=== PATIENT | female | born 1940 | race Caucasian/White ===

== ENCOUNTER 2023-04-28 17:23 | Inpatient (IN) | payer OTHER ==
[~2023-04-28] VITALS: Ht 162.6 cm; Wt 69.9 kg
[2023-04-28 18:10] LABS: BASOPHILS # (AUTO) 0.1 K/uL (0.0-0.2); BASOPHILS % (AUTO) 0.5 % (0.0-2.0); EOSINOPHILS # (AUTO) 0.1 K/uL (0.0-0.7); EOSINOPHILS % (AUTO) 0.6 % (0.0-6.0); HEMATOCRIT 36 % (33-45); HEMOGLOBIN 12.3 g/dL (11.5-14.8); LYMPHOCYTES # (AUTO) 1.3 K/uL (0.8-4.8); LYMPHOCYTES % (AUTO) 12.2 % (20.0-44.0); MEAN CORPUSCULAR HEMOGLOBIN 28 PG (26.0-33.0); MEAN CORPUSCULAR HGB CONC 34 g/dl (31.0-36.0); MEAN CORPUSCULAR VOLUME 83 fL (82-100); MONOCYTES # (AUTO) 0.8 K/uL (0.1-1.30); MONOCYTES % (AUTO) 7.4 % (2.0-12.0); NEUTROPHILS # (AUTO) 8.5 K/uL (1.8-8.9); NEUTROPHILS % (AUTO) 79.3 % (43.0-81.0); PLATELET COUNT (AUTO) 402 K/uL (150-450); RED BLOOD CELL COUNT(AUTO) 4.33 MIL/uL (4.0-5.2); RED CELL DISTRIBUTION WIDTH 14.3 % (11.5-15.0); WHITE BLOOD COUNT (AUTO) 10.8 K/uL (4.3-11.0)
[2023-04-28 18:26] LABS: INR 2.1 (0.91-1.10); PARTIAL THROMBOPLASTIN TIME 40.1 SEC (24.3-34.3); PROTHROMBIN TIME 21.2 SECS (9.2-11.1)
[2023-04-28 18:52] LABS: APPEARANCE,URINE SLIGHTLY CLOUDY (CLEAR); BILIRUBIN,URINE NEGATIVE (NEGATIVE); BLOOD, URINE 2+ Ery/uL (NEGATIVE); COLOR,URINE YELLOW (YELLOW); KETONES,URINE TRACE mg/dL (NEGATIVE); LEUKOCYTE ESTERASE ,URINE 2+ (NEGATIVE); NITRITE, URINE POSITIVE (NEGATIVE); PROTEIN,URINE 2+ mg/dl (NEGATIVE); UGLUCOSE NEGATIVE (NEGATIVE); UROBILINOGEN,URINE 0.2 EU/dL (0.2)
[2023-04-28 18:55] LABS: ADD URINE CULTURE YES; BACTERIA,URINE 3+ /HPF (None Seen); RBC,URINE 21-50 /HPF (0-2); SQUAMOUS EPITHELIAL CELL,UR 0-2 /HPF (None Seen); WBC,URINE 21-50 /HPF (0-3)
[2023-04-28] MEDS ORDERED: IV NS 0.9% 1,000 ML BAG IV ONE (19:00)
[2023-04-28 19:16] LABS: ALANINE AMINOTRANSFERASE 75 U/L (12-78); ALBUMIN 3.1 g/dL (3.4-5.0); ALCOHOL, BLOOD < 3 mg/dL (0-10); ALKALINE PHOSPHATASE 108 U/L (46-116); ASPARTATE AMINOTRANSFERASE 39 U/L (15-37); BILIRUBIN,DIRECT 0.2 mg/dL (0.0-0.2); BILIRUBIN,TOTAL 0.6 mg/dL (0.2-1.0); CALCIUM, SERUM 9.1 mg/dL (8.5-10.1); CARBON DIOXIDE 30 mmol/L (21-32); CREATININE 0.7 mg/dL (0.6-1.3); GLUCOSE 163 mg/dL (74-106); TOTAL PROTEIN, SERUM 7.1 g/dL (6.4-8.2); UREA NITROGEN, BLOOD 12 mg/dL (7-18)
[2023-04-28 19:22] LABS: MAGNESIUM 1.7 mg/dL (1.8-2.4)
[2023-04-28 19:27] LABS: CHLORIDE 79 mmol/L (98-107); POTASSIUM 2.7 mmol/L (3.5-5.1); SODIUM SERUM 116 mmol/L (136-145)
[2023-04-28 19:49] LABS: THYROID STIMULATING HORMONE 1.991 uIU/mL (0.358-3.74)
[2023-04-28] MEDS: POTASSIUM CL. PREMIX PERIPHER. 50 ML IV SCH ×4 (20:20→23:54)
[2023-04-28] MEDS ORDERED: POTASSIUM CHLORIDE 20 MEQ TAB.PRT.SR PO ONE (21:30)
[2023-04-28] MEDS ORDERED: IV NS 0.9% 1,000 ML IV PRN (22:00)
[2023-04-28] MEDS ORDERED: CEFTRIAXONE 1 G in IV D5W 50 ML IV SCH (22:00)
[2023-04-28] MEDS ORDERED: ONDANSETRON HCL/PF 4 MG/2 ML VIAL IVP PRN (22:00)
[2023-04-28] MEDS ORDERED: ZOLPIDEM TARTRATE 5 MG TABLET PO PRN (22:00)
[2023-04-28] MEDS ORDERED: MAGNESIUM HYDROXIDE 30 ML UDC PO PRN (22:00)
[2023-04-28] MEDS ORDERED: Z GUARD REMEDY 4 OZ OINT TP PRN (22:00)
[2023-04-28] MEDS ORDERED: ACETAMINOPHEN 325 MG TABLET PO PRN (22:00)
[2023-04-28] MEDS ORDERED: MAG HYDROX/AL HYDROX/SIMETH 30 ML UDC PO PRN (22:00)
[2023-04-28] MEDS ORDERED: POTASSIUM CL. PREMIX PERIPHER. 50 ML ONE (22:28)
[2023-04-28 23:13] LABS: CALCIUM, SERUM 8.2 mg/dL (8.5-10.1); CREATININE 0.6 mg/dL (0.6-1.3)
[2023-04-28 23:30] VITALS: BP 128/58; TEMP 98.8; O2SAT 96
[2023-04-28 23:30] LABS: POTASSIUM 2.8 mmol/L (3.5-5.1)
[2023-04-28] MEDS ORDERED: CEFTRIAXONE 1GM BAG (ER ONLY) 50 ML IV ONE (23:33)
[2023-04-28 23:56] VITALS: BP 128/58; TEMP 98.8; O2SAT 96
[2023-04-29 04:00] VITALS: BP 126/51; TEMP 98.6; O2SAT 96
[2023-04-29 06:25] LABS: BASOPHILS # (AUTO) 0.1 K/uL (0.0-0.2); BASOPHILS % (AUTO) 0.5 % (0.0-2.0); EOSINOPHILS # (AUTO) 0.1 K/uL (0.0-0.7); EOSINOPHILS % (AUTO) 0.9 % (0.0-6.0); HEMATOCRIT 31 % (33-45); HEMOGLOBIN 10.4 g/dL (11.5-14.8); LYMPHOCYTES # (AUTO) 1.1 K/uL (0.8-4.8); LYMPHOCYTES % (AUTO) 10.4 % (20.0-44.0); MEAN CORPUSCULAR HEMOGLOBIN 28 PG (26.0-33.0); MEAN CORPUSCULAR HGB CONC 33 g/dl (31.0-36.0); MEAN CORPUSCULAR VOLUME 85 fL (82-100); MONOCYTES # (AUTO) 0.7 K/uL (0.1-1.30); MONOCYTES % (AUTO) 6.9 % (2.0-12.0); NEUTROPHILS # (AUTO) 8.8 K/uL (1.8-8.9); NEUTROPHILS % (AUTO) 81.3 % (43.0-81.0); PLATELET COUNT (AUTO) 342 K/uL (150-450); RED BLOOD CELL COUNT(AUTO) 3.68 MIL/uL (4.0-5.2); RED CELL DISTRIBUTION WIDTH 14.4 % (11.5-15.0); WHITE BLOOD COUNT (AUTO) 10.8 K/uL (4.3-11.0)
[2023-04-29 06:54] LABS: CREATININE 0.6 mg/dL (0.6-1.3); MAGNESIUM 1.9 mg/dL (1.8-2.4); PHOSPHORUS 2.1 mg/dL (2.5-4.9); POTASSIUM 2.9 mmol/L (3.5-5.1)
[2023-04-29 08:00] VITALS: BP 142/60; TEMP 99; O2SAT 97
[2023-04-29] MEDS ORDERED: POTASSIUM CHLORIDE 20 MEQ POWDER PACKET PO ONE ×2 (09:00→10:00)
[2023-04-29] MEDS ORDERED: ISOS30TA86 PO (09:30)
[2023-04-29] MEDS ORDERED: ALBU8.5H8 IH (09:30)
[2023-04-29] MEDS ORDERED: TIOT4MIS5 IH (09:30)
[2023-04-29] MEDS ORDERED: FLUT1BLS13 IH (09:30)
[2023-04-29] MEDS ORDERED: CARB1TAB21 PO (09:30)
[2023-04-29] MEDS ORDERED: METF-440 PO (09:30)
[2023-04-29] MEDS ORDERED: MONT10TA22 PO (09:30)
[2023-04-29] MEDS ORDERED: AMLO5TAB4 PO (09:30)
[2023-04-29] MEDS ORDERED: IV D5W 1,000 ML IV ONE (09:30)
[2023-04-29] MEDS ORDERED: WARF-58 PO (09:30)
[2023-04-29] MEDS ORDERED: ROSU20TA2 PO (09:30)
[2023-04-29] MEDS ORDERED: WARF7.5T49 PO (09:30)
[2023-04-29] MEDS ORDERED: HYDR25TA4 PO (09:30)
[2023-04-29] MEDS ORDERED: IV D5W 1,000 ML IV PRN (10:30)
[2023-04-29] MEDS ORDERED: WARFARIN SODIUM 5 MG TABLET PO SCH (11:00)
[2023-04-29] MEDS ORDERED: ALBUTEROL FS 2.5 MG/3 ML VIAL.NEB NEB PRN (11:30)
[2023-04-29 12:00] VITALS: BP 152/66; TEMP 99.1; O2SAT 98
[2023-04-29] MEDS ORDERED: BISACODYL SUPP (10 MG) 10 MG/SUPP.RECT SUPP.RECT RC PRN (12:30)
[2023-04-29] MEDS: METFORMIN 500 MG TABLET PO SCH ×2 (12:40→16:44)
[2023-04-29] MEDS: CARBIDOPA/LEVODOPA 25/100 MG 1 UDTAB PO SCH ×2 (12:40→16:44)
[2023-04-29 13:13] LABS: THYROID STIMULATING HORMONE 1.897 uIU/mL (0.358-3.74)
[2023-04-29] MEDS ORDERED: ALBUTEROL FS 2.5 MG/0.5 ML VIAL.NEB NEB SCH (13:30)
[2023-04-29 14:41] LABS: CALCIUM, SERUM 8.2 mg/dL (8.5-10.1); CARBON DIOXIDE 23 mmol/L (21-32); CHLORIDE 97 mmol/L (98-107); CREATININE 0.6 mg/dL (0.6-1.3); GLUCOSE 225 mg/dL (74-106); MAGNESIUM 1.8 mg/dL (1.8-2.4); PHOSPHORUS 1.7 mg/dL (2.5-4.9); POTASSIUM 3.8 mmol/L (3.5-5.1); SODIUM SERUM 128 mmol/L (136-145); UREA NITROGEN, BLOOD 10 mg/dL (7-18)
[2023-04-29 16:00] VITALS: BP 135/56; TEMP 98.8; O2SAT 97
[2023-04-29] MEDS ORDERED: K PHOS NEUTRAL 250 MG TABLET PO ONE (16:00)
[2023-04-29 16:43] VITALS: BP 135/56
[2023-04-29] MEDS ORDERED: AMLODIPINE BESYLATE 5 MG TABLET PO SCH (17:00)
[2023-04-29] MEDS ORDERED: LEVOFLOXACIN (250MG) 250 MG TABLET PO SCH (17:00)
[2023-04-29 17:34] LABS: CALCIUM, SERUM 8.1 mg/dL (8.5-10.1); CARBON DIOXIDE 24 mmol/L (21-32); CHLORIDE 94 mmol/L (98-107); CREATININE 0.6 mg/dL (0.6-1.3); GLUCOSE 168 mg/dL (74-106); POTASSIUM 3.8 mmol/L (3.5-5.1); SODIUM SERUM 124 mmol/L (136-145); UREA NITROGEN, BLOOD 10 mg/dL (7-18)
[2023-04-29] MEDS ORDERED: BUDESONIDE RESPULE INH 0.5 MG/2 ML AMPUL.NEB NEB SCH (19:30)
[2023-04-29] MEDS ORDERED: ATORVASTATIN 40 MG TABLET PO SCH (22:00)
[2023-04-29] MEDS ORDERED: MONTELUKAST SODIUM (10MG) 10 MG TABLET PO SCH (22:00)
[2023-04-30] MEDS ORDERED: ISOSORBIDE MONONITRATE (30MG) 30 MG TAB.SR.24H PO SCH (09:00)
[2023-04-30] MEDS ORDERED: WARFARIN SODIUM 5 MG TABLET PO SCH (12:04)
[2023-05-02 06:07] LABS: HEPATITIS B CORE AB, IgM Negative (Negative); HEPATITIS B CORE AB, TOTAL Negative (Negative); HEPATITIS B SURFACE AB Non Reactive (.); HEPATITIS Be AG Negative (Negative)
[2023-05-02 09:07] LABS: HEPATITIS Be AB Negative (Negative)
== END 2023-04-29 17:58 | disposition short-term general hospital (02) | DRG 640 ==
LOC: ER 17:25 → TELE 22:29
PROVIDERS: ADMIT Nurse Practitioner Acute Care; ATTEND Nurse Practitioner Acute Care
DX: E87.1 Hypo-osmolality and hyponatremia (principal); G93.41 Metabolic encephalopathy; N39.0 Urinary tract infection, site not specified; D68.69 Other thrombophilia; E44.0 Moderate protein-calorie malnutrition; I48.20 Chronic atrial fibrillation, unspecified; E86.0 Dehydration; D64.9 Anemia, unspecified; E11.9 Type 2 diabetes mellitus without complications; E78.5 Hyperlipidemia, unspecified; E87.6 Hypokalemia; E88.09 Other disorders of plasma-protein metabolism, not elsewhere classified; I10 Essential (primary) hypertension; Z79.01 Long term (current) use of anticoagulants; Z96.653 Presence of artificial knee joint, bilateral; K52.9 Noninfective gastroenteritis and colitis, unspecified; Z68.26 Body mass index [BMI] 26.0-26.9, adult; B96.89 Other specified bacterial agents as the cause of diseases classified elsewhere; E83.9 Disorder of mineral metabolism, unspecified; M19.90 Unspecified osteoarthritis, unspecified site; G20.A1 Parkinson's disease without dyskinesia, without mention of fluctuations; Z20.822 Contact with and (suspected) exposure to COVID-19; E87.8 Other disorders of electrolyte and fluid balance, not elsewhere classified; M89.8X9 Other specified disorders of bone, unspecified site; W19.XXXA Unspecified fall, initial encounter; Y92.009 Unspecified place in unspecified non-institutional (private) residence as the place of occurrence of the external cause
CPT/HCPCS: 36415; 70450-TC; 71045-TC; 72125-TC; 80048-TC; 80076-TC; 81001; 82533; 82550-TC; 82553; 83735-TC; 83880; 84100-TC; 84300-TC; 84439-TC; 84443-TC; 84484-TC; 84550-TC; 85025-TC; 85730-TC; 86704; 86705; 86706; 86707; 86803; 87086-TC; 87340; 87350; 97112-TC; 97116-TC; 97530-TC; A4223; G0378; G0480; J0696; J3480; J7030; J7060; J7070